=== PATIENT | female | born 1950 | race Caucasian/White ===

== ENCOUNTER 2016-09-01 07:54 | Day surgery (SDC) | payer MEDICARE, OTHER ==
[~2016-09-01 07:54] MED LIST: PHENYLEPHRINE 2.5% OPHTH 2 ML DROPS ONE
[2016-09-01] MEDS ORDERED: CYCLOPENTOLATE 1% OPHTH DROPS 2 ML OPTH ONE (08:15)
[2016-09-01] MEDS ORDERED: PHENYLEPHRINE 2.5% OPHTH 2 ML DROPS OPTH ONE (08:15)
[2016-09-01] MEDS ORDERED: PROPARACAINE 0.5% OPHTH DROPS 15 ML OPTH ONE ×2 (08:15→09:29)
[2016-09-01] MEDS ORDERED: KETOROLAC 0.45% OPHTH DROPS OPTH ONE (08:15)
[2016-09-01] MEDS ORDERED: LACTATED RINGERS 500 ML IV ONE (08:28)
[2016-09-01] MEDS ORDERED: MIDAZOLAM 2 MG/2 ML VIAL IVP ONE (09:23)
[2016-09-01] MEDS ORDERED: LIDOCAINE-MPF 2% 5 ML VIAL IM ONE (09:23)
[2016-09-01] MEDS ORDERED: PROPOFOL 200 MG/20 ML VIAL IVP ONE (09:23)
[2016-09-01] MEDS ORDERED: EPINEPHrine 1 MG/ML AMP IVP ONE (09:29)
[2016-09-01] MEDS ORDERED: BRIMONIDINE 0.2% OPHTH DROPS 5 ML OPTH ONE (09:29)
[2016-09-01] MEDS ORDERED: CHONDR SULF/HYALURONATE SYRINGE IO ONE (09:29)
[2016-09-01] MEDS ORDERED: TIMOLOL 0.5% OPHTH DROPS OPTH ONE (09:29)
[2016-09-01] MEDS ORDERED: BSS/LIDOCAINE/EPINEPHRINE 1 ML SYRINGE IO ONE ×2 (09:30)
[2016-09-01] MEDS ORDERED: TRIAMCIN/MOXIFLOX/VANCO 1 ML VIAL IO ONE ×2 (09:30)
[2016-09-01 09:55] VITALS: BP 133/75
--- NOTE | 2016-09-01 11:39 | OPERATIVE REPORT ---
DATE OF SURGERY: 09/01/2016 00:00:00 PREOPERATIVE DIAGNOSIS: Visually significant cataract, left eye. This was her first cataract surgery. POSTOPERATIVE DIAGNOSIS: Visually significant cataract, left eye. This was her first cataract surgery . NAME OF PROCEDURE: Phacoemulsification with posterior chamber intraocular lens implant, left eye. SURGEON: Jonn Riddle MD ANESTHESIA: Monitored anesthesia care. COMPLICATIONS: None. OPERATIVE INDICATIONS: This is a 66-year-old woman with progressive vision loss in the left eye due t o 3+ nuclear sclerotic cataract. Best corrected visual acuity was 20/30 with glare to 20/100 in the l eft eye. Indications for surgery were overall decrease in vision, difficulty seeing words, closed cap tions or game scores on TV, difficulty seeing street signs, difficulty driving at low light or at nig ht, difficulty driving at night because of headlights from other vehicles, and difficulty with glare and bright lights in any situation. She was consented at length concerning the risks and benefits of cataract surgery after which she expressed a desire to proceed with surgery. OPERATIVE PROCEDURE: The patient was taken into OR #2 and placed under monitored anesthesia care. A s urgical time-out was conducted confirming correct patient, correct procedure and correct surgical sit e. She was placed under the LenSx laser and her eye docked to the laser interface. The laser performe d the capsulotomy, lens softening, phaco wounds, and arcuate keratotomy incisions. She was then moved to the operating microscope, given topical anesthesia, and then prepped and draped in the usual ster ile fashion. The eye was entered at the 6- and 3 o'clock positions. Intracameral Shugarcaine was inje cted into the anterior chamber, followed by Viscoat. Capsulorrhexis flap created by the LenSx laser w as removed from the anterior chamber. The nucleus was hydrodissected and phacoemulsified. The cortex was evacuated using automated infusion aspiration. Provisc was injected in the capsular bag and a 23. 5 diopter intraocular lens inserted into the bag. Approximately 0.8 mL of a mixture of triamcinolone, moxifloxacin, and vancomycin was injected subconjunctivally in the superior quadrant for infection a nd inflammation prophylaxis. I/A was used to evacuate the viscoelastic materials. The eye was inflate d to physiologic pressure using balanced salt solution and found to be watertight. The patient was bailey henderson from the operating room in good condition and given postoperative instructions. JOB #: [id number] EXT JOB #:[id number]
== END 2016-09-01 07:55 | disposition home or self-care (01) ==
LOC: SDS 07:54
PROVIDERS: ATTEND Ophthalmology
PROC: 08RK3JZ Replacement of Left Lens with Synthetic Substitute, Percutaneous Approach (ICD-10-PCS; principal; 2016-09-01 09:00)
DX: H25.12 Age-related nuclear cataract, left eye (principal); I10 Essential (primary) hypertension; E78.00 Pure hypercholesterolemia, unspecified; F40.240 Claustrophobia; F41.9 Anxiety disorder, unspecified; M19.90 Unspecified osteoarthritis, unspecified site; Z83.3 Family history of diabetes mellitus; Z83.511 Family history of glaucoma; Z87.891 Personal history of nicotine dependence
CPT/HCPCS: 66984; A9270; V2632